=== PATIENT | female | born 1940 | race American Indian/Alaskan Native ===

== ENCOUNTER 2016-10-28 09:51 | Outpatient (CLI) | payer MEDICARE ==
--- NOTE | 2016-10-28 15:58 | Mammography Report ---
BILATERAL DIGITAL SCREENING MAMMOGRAM with CAD: 10/28/16 09:51:00 CLINICAL: Routine screening. COMPARISON:09/24/16 FINDINGS: The breasts are almost entirely fatty. No mass, architectural distortion or suspicious calcifications. IMPRESSION: No mammographic evidence of malignancy. BI-RADS CATEGORY: 1 - - Negative RECOMMENDATION: Routine mammographic screening in one year. COMMENT: Patient follow-up letters are generated by our [employer] application.
== END 2016-10-28 09:52 | disposition home or self-care (01) ==
LOC: SPVWC 09:51
PROVIDERS: ATTEND Family Medicine
DX: Z12.31 Encounter for screening mammogram for malignant neoplasm of breast (principal)
CPT/HCPCS: 77067; G0202

== ENCOUNTER 2017-10-29 09:43 | Outpatient (CLI) | payer MEDICARE ==
--- NOTE | 2017-10-29 12:39 | Mammography Report ---
BONE DEXA:10/29/17 09:43:00 CLINICAL: Postmenopausal. COMPARISON: 09/24/15 TECHNIQUE: Two site bone DEXA performed on an Hologic scanner. FINDINGS: The average BMD of the lumbar spine L1-L4 is 0.816g/cm squared with a T-score of -3.0 and a Z-score of -0.1. This compares to 0.792g/cm squared on the last exam and represents a + 3.1% change from the previous baseline. The average BMD of the left hip is 0.695g/cm squared with a T-score of -2.2 and a Z-score of -0.7. This compares to 0.695g/cm squared on the last exam and represents a 0% change from the previous baseline. IMPRESSION: 1. WHO classification: Osteoporosis with high fracture risk based on the spine and left hip measurements. 2. Modest improvement in spine BMD and no change in left hip BMD compared to the prior exam. RECOMMENDATION: Clinical correlation and routine screening. DEFINITIONS: BMD = Bone Mineral Density T-score = BMD related to mean peak bone mass of young adult (mean expressed in Standard Deviation) Z-score = Age matched BMD expressed in SD World Health Organization (WHO) Diagnostic Criteria Normal T-score > -1 SD Osteopenia T-score between -1 and -2.4 SD Osteoporosis T-score -2.5 SD or below NOTE: BMD is not the only risk factor for fracture; also consider factors such as the patient's age, risk of falling, previous osteoporotic fracture, family history of osteoporotic fractures, current smoker, and low body weight. Z-scores are not calculated if >80 years of age.
--- NOTE | 2017-10-29 13:21 | Mammography Report ---
BILATERAL DIGITAL SCREENING MAMMOGRAM with CAD: 10/29/17 09:43:00 CLINICAL: Routine screening. COMPARISON:10/28/16 FINDINGS: The breasts are mostly fatty. No mass, architectural distortion or suspicious calcifications. IMPRESSION: No mammographic evidence of malignancy. BI-RADS CATEGORY: 1 - - Negative RECOMMENDATION: Routine mammographic screening in one year. COMMENT: Patient follow-up letters are generated by our [employer] application.
== END 2017-10-29 09:44 | disposition home or self-care (01) ==
LOC: SPVWC 09:43
PROVIDERS: ATTEND Family Medicine
DX: Z12.31 Encounter for screening mammogram for malignant neoplasm of breast (principal); M81.0 Age-related osteoporosis without current pathological fracture; Z78.0 Asymptomatic menopausal state
CPT/HCPCS: 77067; 77080